=== PATIENT | female | born 1955 | race Caucasian/White ===

== ENCOUNTER 2020-05-30 08:30 | Emergency (ER) | payer MEDICAID ==
[~2020-05-30] VITALS: Ht 162.6 cm; Wt 90.7 kg
--- NOTE | 2020-05-30 08:33 | Emergency Room Report ---
History of Present Illness General Chief Complaint: To Be Triaged Source: Patient Present Illness HPI 64-year-old female with past medical history of hypertension and dyslipidemia presents status post fall x 2 days ago. Patient states she was cleaning while standing on top of a chair with wheels and subsequently had a mechanical fall as the chair rolled out from underneath her. She broke her fall with her buttocks, low back, and also had the back of her head hit the ground. Questionable loss of consciousness. She delayed coming to the emergency department because she thought the pain would improve on its own. She denies any vision changes, difficulty walking, saddle anesthesia, urinary retention, bowel or bladder incontinence, flank pain, abdominal pain, pelvic pain, chest pain, shortness of breath, or prodromal syncope/seizure. Denies blood thinner use The patient's symptoms were gradual onset, severity was moderate, duration since 2 days. Quality: Aching Past medical history: Hypertension and dyslipidemia Past surgical history: Denies Smoking: Denies Alcohol use: Denies Drug use: Denies Review of systems: CONST: No fevers or chills, No night sweats PULMONARY: No productive cough, No shortness of breath CARDIAC: No chest pain, No palpitations GI: No vomiting, No diarrhea , No melena_or_BRBPR : No dysuria, No hematuria, No discharge NEURO: No new_focal_weakness_or_numbness, No confusion, No vision changes 14 point Review of Systems is otherwise negative except per HPI Physical Exam: GENERAL: Awake_alert_ nontoxic, no acute distress Spo2 96% on RA -normal EYES: Extraocular muscles are intact. Conjunctivae clear. Lids without swelling. No nystagmus. No proptosis. No cycloplegia. No hyphema. ENT: External nose and ear normal_in_appearance. Oropharynx clear. Head_atr aumatic, Moist_oral_mucosa. No midface instability. No dior sign. NECK: No JVD. No meningismus. No thyromegaly. Supple. Trachea midline. No cervical, thoracic, or lumbar spinal step-offs or deformities. RESP: Normal respiratory effort. Symmetric rise. No stridor. Clear_to_auscultation_No_rales_No_wheezes. No chest wall crepitus CARDIAC: Regular rate and regular rhytm. No_significant pedal edema. ABDOMEN: Soft. Nondistended. Nontender_No_rebound_or_guarding. MSK: Normal muscle tone, without rigidity. Extremities without asymmetric deformity or swelling. Paraspinal cervical tenderness to palpation. Paraspinal lumbosacral tenderness to palpation. No saddle anesthesia. Plus 5 out of 5 strength in the bilateral upper and lower extremity. Sensation intact to light touch in all 4 extremities. Negative [id number]. Negative pronator drift. Negative rapid alternating movement. SKIN: Warm and dry. No visible cyanosis or pallor NEUROLOGIC: Alert, oriented x3. Motor_and_sensation_grossly_intact. No truncal ataxia. Gait_normal Small L parietal hematoma. Psych: Normal mood and affect, normal judgment and insight - COORDINATION OF CARE Case was discussed with: Patient Any labs and imaging that were ordered were interpreted as part of the medical decision making: Medical Decision Making/Plan: Differential diagnosis includes closed head injury, scalp contusion, neck muscle spasm / strain, vs less likely skull fracture, intracranial bleeding, vertebral fracture, spinal cord compression / injury, among others. Given the patients significant mechanism, CT scans of the head, neck, and lumbar spine were immediately obtained and showed no evidence of any emergent findings. Doubt SAH or occult ICH as patient is neuro intact with no recurrent symptoms or vomiting. Plain films were within normal limits There was no evidence of any wounds that required repair EKG was nonischemic. No acute arrhythmia noted. Received toradol and tylenol with full relief of symptoms. The patient is non-toxic, well appearing and significantly improved with observation and serial exams in the emergency department. The patient is neurologically intact and able to ambulate, no evidence of spinal cord injury. Hips have no tenderness or significant pain with range of motion and the patient is able to ambulate without difficulty, no evidence of hip fracture. Suspect headache 2/2 closed head injury with concussion. Recommend OTC tylenol at home and warm compress for pain control. Recommend avoidance of heavy labor and to avoid activities that may lead in reinjury of her head. Patient is stable for discharge home and follow up with their regular doctor in 1-2 days. If symptoms persist recommend referral to neurology. Allergies: Coded Allergies: No Known Allergies (Unverified , 05/30/20) Physical Exam Sp02 EP Interpretation: reviewed, normal Medical Decision Making Diagnostic Impression: Primary Impression: Headache Additional Impressions: Muscle spasms of neck Back pain Closed head injury Concussion EKG Diagnostic Results Troponin ordered: Yes When was troponin ordered?: May 30, 2020 EKG Time: 09:28 Rate: normal Rhythm: NSR ST Segments: no acute changes ASA given to the pt in ED: No PA Scribe Text 12-lead EKG (interpreted by me) Time: 0 928 Indication: Rhythm analysis Tracing visualized and Interpreted by me. Rhythm: Normal sinus rhythm Rate: 66 bpm QTc: 410 Morphology: No_significant_ST_elevations_or_depressions, No STEMI Impression: Normal_sinus_rhythm_without_significant_abnormality. T wave inversion lead III Rhythm Strip Diag. Results Rhythm Strip Time: 09:36 EP Interpretation: yes Rate: 69 Rhythm: NSR, no PVC's, no ectopy Chest X-Ray Diagnostic Results Chest X-Ray Diagnostic Results : BERNIE Scribe Text Chest X-Ray: Views: [ 1 ] view(s) Indication: FALL Findings: Normal heart size. Mediastinum normal. No infiltrate. Impression: NAD The X-ray(s) were independently viewed and interpreted contemporaneously Electronically signed by , Kenyetta Saeed, CT/MRI/US Diagnostic Results CT/MRI/US Diagnostic Results : Impression CT Head no Contrast Indications Findings: No acute intracranial hemorrhage or edema. No mass effect or midline shift. Normal for age ventricles and extra-axial CSF spaces. Visualized orbits and sinuses are unremarkable. The mastoids are clear. The calvarium is intact. Impression: Negative CT C Spine no Contrast Indication: Pain, status post fall Findings: Slight straightening of the normal cervical lordosis. There is very slight anterior offset of C2 on C3, C3 on C4, C4 and C5. Bony alignment is otherwise normal. No acute fractures. No evidence of dislocation. At C2-3, there is very mild narrowing of the right neural foramen due to uncinate hypertrophy. At C3-4, there is mild to moderate narrowing of the right neural foramen due to uncinate and facet hypertrophy. C5-6, there is mild degenerative disc narrowing. No significant disc bulge or protrusion, spinal stenosis, or neural foraminal stenosis. At C6-7, there is minimal degenerative disc narrowing. No significant disc bulge or protrusion, spinal stenosis, or neural foraminal stenosis. At the remaining disc levels, no significant disc bulge, protrusion, spinal stenosis, or neural foraminal stenosis. The included extraspinal soft tissues are unremarkable. Impression: No acute bony trauma Degenerative changes, as detailed above CT L Spine no Contrast Indications: Pain, status post fall 2 days ago Findings: Bony alignment is normal. Vertebral body heights are preserved. The disc spaces are preserved. No evidence of acute fracture or dislocation. No significant disc bulge or protrusion, spinal stenosis, or neural foraminal stenosis. Included upper spinal soft tissues are unremarkable. Impression: Negative Reevaluation Time: 10:24 Status: improved Disposition: HOME, SELF-CARE Admit Decision Time: 10:30 Condition: Stable Scripts Naproxen* (NAPROXEN*) 500 Mg Tablet.dr 500 MG ORAL TWICE A DAY for 10 Days, #20 TAB Prov: Kenyetta Saeed D.O. 05/30/20 Methocarbamol* (ROBAXIN-750*) 750 Mg Tablet 750 MG PO TID, #21 TAB 0 Refills Prov: Kenyetta Saeed D.O. 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 Follow-up with your doctor sooner if your condition requires a more timely clinical reevaluation. Return to the emergency department immediately if you feel that your condition is worsening or if you have any new or concerning symptoms. Review your discharge instructions and take any prescriptions given as instructed. [facility] PROVIDES FREE OR LOW-COST HEALTH SERVICES TO PEOPLE WHO CAN SHOW PROOF THAT THEY LIVE IN [facility]. TO FIND MORE CLINICS PARTNERED WITH THE [facility] TO PROVIDE SERVICE, PLEASE CALL . Kenyetta Saeed D.O. May 30, 2020 08:33
--- NOTE | 2020-05-30 08:45 | NUR ---
ED Nurse Note: Pt ambulated to ED from home d/t posterior head and low back pain s/p mechanical fall at home happened 2 days ago witnessed by daughter. Pt is AOx4, calm and cooperative to care, VSS, on RA, denies any dizziness/drowsiness prior to fall. Per daughter, pt has loss of consciouness for approx 2 min and became disoriented afterwards. Per pt she takes ASA; denies any other blood thinners. Pt was placed on bed and gown; bed on low position.
[2020-05-30] MEDS ORDERED: ASPIRIN81 MG ORAL (08:47)
--- NOTE | 2020-05-30 08:57 | NUR ---
ED Nurse Note: Pt was taken to CT.
[2020-05-30] MEDS ORDERED: Acetaminophen 500mg (ES) tab ORAL ONE (09:00)
--- NOTE | 2020-05-30 09:11 | NUR ---
ED Nurse Note: Pt returned from CT on stable condition.
[2020-05-30 09:31] VITALS: BP 160/79
--- NOTE | 2020-05-30 09:43 | NUR ---
ED Nurse Note: x-ray done, urine sent to lab.
[2020-05-30 09:48] LABS: BASOPHILS % (AUTO) 0.9 % (0.0-2.0); EOSINOPHILS % (AUTO) 1.7 % (0.0-3.0); HEMATOCRIT 45.8 % (37.0-47.0); HEMOGLOBIN 14.9 G/DL (12.0-16.0); MEAN CORPUSCULAR VOLUME 95 FL (80-99); MONOCYTES % (AUTO) 4.5 % (1.0-10.0); NEUTROPHILS % (AUTO) 58.8 % (45.0-75.0); PLATELET COUNT 169 K/UL (150-450); RED BLOOD COUNT 4.84 M/UL (4.20-5.40); RED CELL DISTRIBUTION WIDTH 12.2 % (11.6-14.8)
[2020-05-30 09:56] LABS: ANION GAP 8 mmol/L (5-15); BLOOD UREA NITROGEN 12 mg/dL (7-18); CALCIUM 9.1 MG/DL (8.5-10.1); CARBON DIOXIDE 26 MMOL/L (21-32); CHLORIDE 105 MMOL/L (98-107); CREATININE 0.8 MG/DL (0.55-1.30); SODIUM 139 MMOL/L (136-145)
--- NOTE | 2020-05-30 09:57 | Diagnostic Imaging Report ---
Indications: Status post fall 2 days ago with posterior headache Technique: Spiral acquisitions obtained through the brain. Angled axial and coronal 5 x 5 mm slices were reconstructed. Total dose length product 1018 mGycm. CTDI vol(s) 53 mGy. Dose reduction achieved using automated exposure control Comparison: None. Findings: No acute intracranial hemorrhage or edema. No mass effect or midline shift. Normal for age ventricles and extra-axial CSF spaces. Visualized orbits and sinuses are unremarkable. The mastoids are clear. The calvarium is intact. Impression: Negative The CT scanner at [facility] is accredited by the [employer] and the scans are performed using protocols designed to limit radiation exposure to as low as reasonably achievable to attain images of sufficient resolution adequate for diagnostic evaluation.
[2020-05-30 09:58] LABS: ALANINE AMINOTRANSFERASE 27 U/L (12-78); ALBUMIN 3.8 G/DL (3.4-5.0); ALKALINE PHOSPHATASE 58 U/L (46-116); ASPARTATE AMINO TRANSFERASE 20 U/L (15-37); BILIRUBIN,TOTAL 0.5 MG/DL (0.2-1.0)
[2020-05-30 10:00] LABS: APPEARANCE,URINE CLEAR; BILIRUBIN, URINE NEGATIVE (NEGATIVE); GLUCOSE, URINE (UA) NEGATIVE (NEGATIVE); KETONES,URINE NEGATIVE (NEGATIVE); LEUKOCYTE ESTERASE ,URINE 1+ (NEGATIVE); NITRITE,URINE NEGATIVE (NEGATIVE); PH,URINE 5 (4.5-8.0); PROTEIN,URINE 2+ (NEGATIVE); UROBILINOGEN,URINE NORMAL MG/DL (0.0-1.0)
[2020-05-30] MEDS ORDERED: Ketorolac 30mg Inj IV ONE (10:00)
--- NOTE | 2020-05-30 10:01 | Diagnostic Imaging Report ---
Indication: Pain, status post fall Technique: Spiral acquisitions obtained through the cervical spine. No IV contrast utilized. Multiplanar reconstructions were generated. Total dose length product 584 mGycm. CTDIvol(s) 20 mGy. Dose reduction achieved using automated exposure control. Comparison: none Findings: Slight straightening of the normal cervical lordosis. There is very slight anterior offset of C2 on C3, C3 on C4, C4 and C5. Bony alignment is otherwise normal. No acute fractures. No evidence of dislocation. At C2-3, there is very mild narrowing of the right neural foramen due to uncinate hypertrophy. At C3-4, there is mild to moderate narrowing of the right neural foramen due to uncinate and facet hypertrophy. C5-6, there is mild degenerative disc narrowing. No significant disc bulge or protrusion, spinal stenosis, or neural foraminal stenosis. At C6-7, there is minimal degenerative disc narrowing. No significant disc bulge or protrusion, spinal stenosis, or neural foraminal stenosis. At the remaining disc levels, no significant disc bulge, protrusion, spinal stenosis, or neural foraminal stenosis. The included extraspinal soft tissues are unremarkable. Impression: No acute bony trauma Degenerative changes, as detailed above The CT scanner at [facility] is accredited by the [employer] and the scans are performed using protocols designed to limit radiation exposure to as low as reasonably achievable to attain images of sufficient resolution adequate for diagnostic evaluation.
[2020-05-30 10:02] LABS: COLOR,URINE YELLOW
--- NOTE | 2020-05-30 10:08 | Diagnostic Imaging Report ---
Indications: Pain, status post fall 2 days ago Technique: Spiral acquisitions obtained through the lumbar spine. Multiplanar reconstructions were generated. No IV contrast utilized. Total dose length product 628 mGycm. CTDIvol(s) 15 mGy. Dose reduction achieved using automated exposure control Comparison: none Findings: Bony alignment is normal. Vertebral body heights are preserved. The disc spaces are preserved. No evidence of acute fracture or dislocation. No significant disc bulge or protrusion, spinal stenosis, or neural foraminal stenosis. Included upper spinal soft tissues are unremarkable. Impression: Negative The CT scanner at [facility] is accredited by the [employer] and the scans are performed using protocols designed to limit radiation exposure to as low as reasonably achievable to attain images of sufficient resolution adequate for diagnostic evaluation.
[2020-05-30] MEDS ORDERED: NAPROXEN500 M1 ORAL (10:13)
[2020-05-30] MEDS ORDERED: ROBAXIN-750750 MG PO (10:13)
[2020-05-30 10:24] VITALS: BP 155/74
--- NOTE | 2020-05-30 10:24 | NUR ---
ER DISCHARGE NOTE: Patient is cleared to be discharged per ERMD, pt is aox4, on room air, with stable vital signs. pt was given dc and prescription instructions, pt was able to verbalize understanding, pt id band and iv site removed without complications. pt is able to ambulate with steady gait. pt took all belongings.
--- NOTE | 2020-05-30 13:20 | Diagnostic Imaging Report ---
Indication: Cough Technique: One view of the chest Comparison: none Findings: No acute infiltrates, effusions, or congestion. Tortuous calcified aorta. Normal heart size. Upper mediastinum unremarkable. Impression: No acute process.
--- NOTE | 2020-05-31 15:13 | Cardiology Report ---
APPROVED REPORT EKG Measurement Heart [id number] <Conclusion> Normal sinus rhythm Rightward axis Borderline ECG
== END 2020-05-30 10:24 | disposition home or self-care (01) ==
LOC: EMR 09:02
DX: S09.90XA Unspecified injury of head, initial encounter (principal); M62.838 Other muscle spasm; M54.9 Dorsalgia, unspecified; S06.0X9A Concussion with loss of consciousness of unspecified duration, initial encounter; W07.XXXA Fall from chair, initial encounter; Y92.9 Unspecified place or not applicable; I10 Essential (primary) hypertension; E78.5 Hyperlipidemia, unspecified; R05 Cough
CPT/HCPCS: 36415; 70450; 71045; 72125; 72131; 80053; 81003; 83690; 84484; 85025; 85610; 85730; 86850; 86900; 86901; 93005; 96374; J1885; Z7502; 99284